=== PATIENT | female | born 1960 | race Caucasian/White ===

== ENCOUNTER 2025-07-22 10:23 | Outpatient (AMB) | payer OTHER, MEDICAID, MEDICARE, SELFPAY ==
--- NOTE | 2025-07-22 10:34 | A.OFFVIS_ITS ---
Intake Visit Reasons: 6mnth Allergies latex (LATEX) Allergy (Mild, Unverified 08/21/23 12:07) UNKNOWN HPI Comments Details: 64 y/o woman with migraine and epilepsy comprised of left temporal secondarily generalized seizures leading to aura, falling, shaking, tongue bite and incontinence. One MRI suggested temporal lesion but further imaging did not confirm it. She is presenting with medication management and refill request for seizure disorder and migraine. She denies recent seizure episodes and continues with her current regimen, which includes propranolol, sumatriptan, and Keppra. Although migraines persist, she manages acute episodes with sumatriptan. She needs new prescription refills for Keppra, given the transition to a new electronic prescription system. Pharmacological prescriptions are sent to her usual pharmacy, [facility] on [facility]. She maintains regular annual health checks and sees her primary care provider. No further questions were raised, and no additional concerns were expressed regarding her current treatment plan. [facility] Medical History (Updated 07/22/25 @ 10:41 by Sophia Welsh MD) Anxiety Depression MCI (mild cognitive impairment) Seizure disorder Migraine Review of Systems Const Details: - Neurological: Reports migraines; Denies recent seizures - General: Denies any additional health concerns - No other systems were discussed or mentioned in the conversation Physical Exam Neuro Other: Mental Status: Alert and oriented to person, place, and time. Normal attention. Normal spontaneous speech, fluency, and comprehension. No obvious issues with mood and memory. Affect is appropriate. Cranial Nerves: CN II: Visual duron full to confrontation, visual acuity intact. CN III, IV, : Pupils equal, round, reactive to light and accommodation. Extraocular movements are normal. CN V: Facial sensation is normal. CN VII: Facial movements symmetrical. CN VIII: Hearing intact to bedside conversation is normal. CN IX, X: Palate elevates symmetrically. CN XI: Shoulder shrug and head turn symmetrical. CN XII: Tongue midline without atrophy or fasciculations. Extrapyramidal: Full facial expressions and blinking. No rigidity. Movements are appropriate with no tremor or abnormality. Speech: Normal; no dysarthria or tremor. 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 Code(s): G40.909 - Epilepsy, unspecified, not intractable, without status epilepticus Category: Medical Qualifiers: Epilepsy type: unspecified Intractability: not intractable Status epilepticus: without status epilepticus Qualified Code(s): G40.909 - Epilepsy, unspecified, not intractable, without status epilepticus (2) Migraine: Code(s): G43.909 - Migraine, unspecified, not intractable, without status migrainosus Category: Medical Qualifiers: Migraine type: migraine (< 15 days per month) without aura Status migrainosus presence: without status migrainosus Intractability: not intractable Qualified Code(s): G43.009 - Migraine without aura, not intractable, without status migrainosus Plan Impression: 1. Epilepsy with secondarily generalized seizure disorder control with levetiracetam 2. Migraine with and without aura better with topiramate Recommendations 1. Levetiracetam 500 mg twice a day 2. Topiramate 50 mg twice a day 3. Sumatriptan 50 mg 1 a day as needed 4. She was encouraged to make regular appointments with primary care physician where routine blood test are done at least once a year. Medications: New topiramate 50 mg PO BID 180 tabs 1RF levetiracetam 500 mg PO BID 180 tabs 1RF Refilled sumatriptan succinate 50 mg orally one a day as needed PRN; do not exceed 4 doses per 24 hrs 10 tabs 5RF migraine headache 30 days Coding Level of Care Code Est Pt Level 4 (85415) Diagnoses Nonintractable epilepsy without status epilepticus, unspecified epilepsy type G40.909 Epilepsy type: unspecified Intractability: not intractable Status epilepticus: without status epilepticus Migraine without aura and without status migrainosus, not intractable G43.009 Migraine type: migraine (< 15 days per month) without aura Status migrainosus presence: without status migrainosus Intractability: not intractable
--- OUTSIDE RECORDS SUMMARY | 2025-07-22 12:49 | XMS_ITS | Clinical Summary ---
Author Organization [address] Address [address] [place] [phone] Phone Care Team Providers Care Verifier Operator Name Role Phone Serena Lundberg MD Primary Care Provider Allergies Active Allergy Reactions Criticality Noted Date Comments Latex Swelling 02/20/2016 Swelling and infection Mirtazapine 04/05/2016 Hallucinations, paranoia Medications venlafaxine XR (EFFEXOR-XR) 150 mg 24 hr capsule Take 1 capsule (150 mg total) by mouth 2 (two) times a day. as directed Active sertraline (ZOLOFT) 25 mg tablet Take 1 tablet (25 mg total) by mouth 1 (one) time each day. Active levETIRAcetam (KEPPRA) 500 mg tablet Take 1 tablet (500 mg total) by mouth 2 (two) times a day. for 90 days 4 Active propranoloL (INDERAL) 10 mg tablet Take 1 tablet (10 mg total) by mouth 3 (three) times a day. for 90 days 4 Active topiramate (TOPAMAX) 50 mg tablet Take 1 tablet (50 mg total) by mouth 2 (two) times a day. for 90 days Active SUMAtriptan (IMITREX) 50 mg tablet Take 1 tablet (50 mg total) by mouth 1 (one) time each day if needed. May repeat dose once after 2 hours, if needed. Active traZODone (DESYREL) 50 mg tablet Take 2 tablets (100 mg total) by mouth at bedtime as needed. Active sucralfate (CARAFATE) 1 gram tablet PLEASE SEE ATTACHED FOR DETAILED DIRECTIONS 4 Active loperamide (IMODIUM) 2 mg capsule Take 1 capsule (2 mg total) by mouth 2 (two) times a day if needed for diarrhea. Active multivitamin (MULTIPLE VITAMINS ORAL) Take by mouth. Active THIAMINE HCL, VITAMIN B1, ORAL Take by mouth. Activ e ergocalciferol (VITAMIN D-2) 1,250 mcg (50,000 unit) capsule Take 1 capsule (50,000 Units total) by mouth 1 (one) time per week. Active sertraline (ZOLOFT) 50 mg tablet Take 1 tablet (50 mg total) by mouth at bedtime. Active ofloxacin (FLOXIN) 0.3 % otic solution Administer 3 drops into the right ear 2 (two) times a day. CONTINUE MINERAL OIL. Active budesonide DR (ENTOCORT EC) 3 mg 24 hr capsuleIndicati ons:Cholangitis (CMS/HCC V28) TAKE 3 CAPSULES (9 MG TOTAL) BY MOUTH DAILY 270 capsule 5 Active omeprazole (PriLOSEC) [address] capsuleIndicati ons:Gastroesoph ageal reflux disease without esophagitis Take 1 capsule (40 mg total) by mouth 2 (two) times a day. 180 capsule 1 5 Active omeprazole (PriLOSEC) [address] capsuleIndicati ons:Gastroesoph ageal reflux disease without esophagitis TAKE 1 CAPSULE BY MOUTH TWICE A DAY 180 capsule 1 5 07/07/20 25 Discontin ued(Reord er) Active Problems Problem Noted Date Diagnosed Date Aortic stenosis 10/12/2024 Overview (10/12/2024): mild S/P gastric bypass 09/22/2024 Abnormal Pap smear of cervix 06/19/2018 Overview (09/22/2024): 03/24 ASCUS with HPV, bx MATILDE 2-3, LEEP scheduled 06/23/1807/25 ASCUS, HPV positive DJD (degenerative joint disease) of knee 017 Obstructive sleep apnea 10/18/2016 Overview (09/22/2024): Cx pulmo 02/04/2017/ N/S pulmo 03/08/2017 01/04/2017 to 02/02/2017. CPAP@ 4-16/Average 6.4/Max 7.1. 20% compliant with using the machine for >4 hours/day. Average use is 3.5 hours a night with AHI 1.9. 01/25/2017 to 02/23/2017. CPAP@ 4-16/Average 5.8/Max 6.2. 17% compliant with using the machine for >4 hours/day. Average use is 3.75 hours a night with AHI 1.2. 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 Migraines 02/20/2016 Seizure ([facility] V24, [facility] V28) 02/20/2016 Encounters Date Type Department Care Team Description 06/28/2025 Telephone [facility] - [facility] [address] [facility] [address] [place] [address] Salomon Murphy MD from Last 3 Months Immunizations Immunization Administration Dates Next Due Influenza Quadravalent, MDCK , 0.5ml, preservative free (Flucelvax) 6mo and older 07/30/2023,06/17/2021,06/19/2018 Influenza Quadravalent, MDCK , 0.5ml, with preservative (Flucelvax) 6mo and older 07/10/2019 Influenza trivalent, MDCK, 0 .5mL, preservative free (Flucelvax) 6mo and older 10/12/2024 Td Tetanus diptheria (Tdvax) 7yo and older 04/19 Tdap Tetanus diptheria acell ular pertussis (Boostrix; Adacel) 7yo and older 12/26/2016 Zoster recombinant (Shingrix ) 19yo and older 08/26/2023,06/17/2021 Surgical History Surgery Date Site/Laterality Comments TONSILLECTOMY OVARIAN CYST REMOVAL 2010 Left COLONOSCOPY 12/30/2014 UPPER GASTROINTESTINAL ENDOSCOPY 12/30/2014 BUNIONECTOMY 06/2012 GASTRIC BYPASS SCREENING MAMMOGRAM 08/15/2023 Bilateral Medical History Medical History Date Comments Ulcerative colitis ([facility] V24, [facility] V28) 02/20/2016 Celiac disease 02/20/2016 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 Small pericardial cyst DJD (degenerative joint dise ase) of knee 12/26/2016 Abnormal Pap smear of cervix 06/19/2018 : ASCUS with HPV, bx MATILDE 2-3, LEEP scheduled 06/23/18 Aortic stenosis 10/12/2024 mild S/P gastric bypass 09/22/2024 Family History Medical History Relation Name Comments Diabetes Father atrial fibrilla tion; sudden at 78 Breast cancer Father's Sister Glaucoma Mother epilepsy; [place], s udden Relation Name Status Comments Father Father's Sister Alive Mother Social History Tobacco Use Types Packs/Day Years Used Date Smoking Tobacco: Never Smokeless Tobacco: Never Tobacco Cessation:Counseling Given: Not Answered Alcohol Use Standard Drinks/Week Comments Not Currently 0 (1 standard drink = 0.6 oz pur e alcohol) Comments No Sex and Gender Information Value Date Recorded Sex Assigned at Not on file Legal Sex Female 1:08 AM EST Gender Identity Not on file Sexual Orientation Not on file Obstetrics History Para Term AB IAB SAB Ectopic Multiple Livin g Live Births 2 Last Filed Vital Signs Vital Sign Reading Time Taken Comments Blood Pressure 128/72 10/12/2024 2:14 PM EST Pulse 76 10/12/2024 2:14 PM EST Temperature 36.7 C (98.1 F) 10/12/2024 2:14 PM EST Respiratory Rate 16 10/12/2024 2:14 PM EST Oxygen Saturation 97% 10/12/2024 2:14 PM EST Inhaled Oxygen Concentration - - Weight 83 kg (183 lb) 10/14/2024 8:25 AM EST Height 170.2 cm (5' 7 ) 10/14/2024 8:25 AM EST Body Mass Index 28.66 10/14/2024 8:25 AM EST Plan of Treatment Upcoming Encounters Date Type Department Care Team (Late st Contact Info) Description 12/31/2025 8:00 AM EDT Office Visit Gastroenterology - [place] [address] [facility] [address] [facility] [address] [place] [id number] Heydi Villanueva, MARCUS [address] [facility] [address] [place] [address] Health Maintenance Due Date Last Done Comments Pneumococcal Vaccine: 50+ Years (1 of 1 - PCV) 2012 HIV Screening 09/09/2022 Medicare Annual Wellness Visit 09/09/2022 Social Influencers of Health Screening 09/09/2022 Depression Screening 10/07/2024 COVID-19 Vaccine ( season) 2025 08/26/2023, 10/17/2021, 02/16/2021, Additional history exists Influenza Vaccine (#1) 2025 , 07/30/2023, 06/17/2021, Additional history exists Breast Cancer Screening 10/14/2026 10/14/19, 08/15/2023, 08/15/2023, Additional history exists DTaP,Tdap,and Td Vaccines (3 - Td or Tdap) 12/26/2026 12/26/2016, 04/19/2016 Colorectal Cancer Screening: Colonoscopy 05/24/2027 05/24/2017, 05/24/2017 Cholesterol Screening (Lipid Panel) 07/30/2028 07/30/2023, 07/30/2023 Cervical Cancer Screening: HPV 11/01/2028 11/01/2023 RSV Immunization Adult Patients (1 - 1-dose 75+ series) 2037 Hepatitis C Screening Completed 12/26/2016 Zoster Vaccines Completed 08/26/2023, 06/17/2021 HIB Vaccines Aged Out No longer eligi ble based on patient's age to complete this topic HPV Vaccines Aged Out No longer eligi ble based on patient's age to complete this topic Hepatitis A Vaccines Aged Out No long er eligible based on patient's age to complete this topic Hepatitis B Vaccines Aged Out No long er eligible based on patient's age to complete this topic IPV Vaccines Aged Out No longer eligi ble based on patient's age to complete this topic MMR Vaccines Aged Out No longer eligi ble based on patient's age to complete this topic Meningococcal ACWY Vaccine Aged Out N o longer eligible based on patient's age to complete this topic Meningococcal B Vaccine Aged Out No l onger eligible based on patient's age to complete this topic RSV Immunization Patients Under 20 months Aged Out No longer eligible based on patient's age to complete this topic Varicella Vaccines Aged Out No longer eligible based on patient's age to complete this topic Procedures Procedure Name Priority Date/Time Associated Diagnosis Comments MG MAMMO DIGITAL SCREENING W JEFFREY BILAT Routine 10/14/2024 8:45 AM EST Encounter for screening mammogram for breast cancer HPV Routine 11/01/2023 LIPID PANEL Routine 07/30/2023 COLONOSCOPY Routine 05/24/2017 HEPATITIS C SCREENING Routine 12/26/2016 from Last 3 Months or Most Recently Relevant to Health Maintenance Results * MG Mammo Digital Screening w Jeffrey bilat (10/14/2024 8:45 AM EST) Anatomical Region Laterality Modality Breast Bilateral Mammography 10/15/2024 8:35 AM EST Impressions 10/15/2024 8:40 AM EST No mammographic evidence of malignancy. No suspicious interval change. A negative mammogram in the presence of a clinically suspicious palpable abnormality does not preclude the possibility of malignancy or alter the indications for biopsy. ASSESSMENT: BI-RADS 1: NEGATIVE RECOMMENDATION(S): 1: Routine screening mammogram BILATERAL in 1 year. -------- FINAL REPORT -------- Dictated By: Bartolo Darling Dictated Date: 10/15/2024 08:35 ET Assigned Physician: Bartolo Darling Reviewed and Electronically Signed By: Bartolo Darling Signed Date: 10/15/2024 08:40 ET Workstation ID: [id number] Transcribed By: Self Edit Transcribed Date: 10/15/2024 08:35 ET Narrative 10/15/2024 8:40 AM EST EXAM: SCREENING MAMMOGRAPHY, BILATERAL HISTORY: SCREENING. Paternal aunt with history of breast cancer. COMPARISON: 07/30/2023 TECHNIQUE: Synthesized CC and MLO projections of each breast. Tomosynthesis of each breast in the CC and MLO projections. ADDITIONAL IMAGING: None Computer-aided detection was employed with the [employer] AI 3-D. TISSUE DENSITY: There are scattered areas of fibroglandular density. (BI-RADS category B) FINDINGS: RIGHT BREAST: No suspicious mass. No suspicious calcification. No distortion. No suspicious change in the region of a ribbon-shaped biopsy site marker LEFT BREAST: No suspicious mass. No suspicious calcification. No distortion. No additional suspicious left breast findings Procedure Note Bartolo Darling MD - 10/15/2024 EXAM: SCREENING MAMMOGRAPHY, BILATERAL HISTORY: SCREENING. Paternal aunt with history of breast cancer. COMPARISON: 07/30/2023 TECHNIQUE: Synthesized CC and MLO projections of each breast.Tomosynthesis of each breast in the CC and MLO projections. ADDITIONAL IMAGING: None Computer-aided detection was employed with the [employer] AI 3-D. TISSUE DENSITY: There are scattered areas of fibroglandular density.(BI-RADS category B) FINDINGS: RIGHT BREAST: No suspicious mass. No suspicious calcification. No distortion. No suspicious change in the region of a ribbon-shaped biopsy site marker LEFT BREAST: No suspicious mass. No suspicious calcification. No distortion. Noadditional suspicious left breast findings IMPRESSION: No mammographic evidence of malignancy. No suspicious interval change. A negative mammogram in the presence of a clinically suspicious palpableabnormality does not preclude the possibility of malignancy or alter theindications for biopsy. ASSESSMENT: BI-RADS 1: NEGATIVE RECOMMENDATION(S): 1: Routine screening mammogram BILATERAL in 1 year. -------- FINAL REPORT -------- Dictated By: Bartolo Darling Dictated Date: 10/15/2024 08:35 ET Assigned Physician: Bartolo Darling Reviewed and Electronically Signed By: Bartolo Darling Signed Date: 10/15/2024 08:40 ET Workstation ID: [id number] Transcribed By: Self Edit Transcribed Date: 10/15/2024 08:35 ET Self Referral Sppl IMG BI PROCEDURES Final Resul t * Cervical Cancer Screening: HPV (11/01/2023) [facility] Cervical Cancer Screening: HPV negative, abstracted [facility] Provider HEALTH MAINTENANCE Final Result * (ABNORMAL) Lipid panel (07/30/2023) [facility] LDL/HDL Ratio 2 0 - 4 Triglycerides 74 0 - 150 mg/dL Cholesterol 202(A) 0 - 200 mg/dL HDL 91 >=40 mg/dL LDL Cholesterol 97 0 - 100 mg/dL Blood Venous blood specimen / Unknown Result [facility] Provider LAB BLOOD ORDERABLES Eleonora l Result * Colonoscopy (05/24/2017) [facility] Colonoscopy no interpretation , abstracted Anatomical Region Laterality Modality Other [facility] Provider HEALTH MAINTENANCE Final Result * Hepatitis C Screening (12/26/2016) [facility] Hepatitis C Screening abstracted [facility] Provider HEALTH MAINTENANCE Final Result from Last 3 Months or Most Recently Relevant to Health Maintenance Insurance [employer] MEDICARE Care Teams Verifier Operator Relationship Specialty Start Date End Date Serena Lundberg MD [address] [place] [address] PCP - General Internal Medicine 02/15/16
--- OUTSIDE RECORDS SUMMARY | 2025-07-22 12:49 | XMS_ITS | Patient Health Record ---
Author Organization [facility] Address [address] [place] [address] Support Name Relationship Address Phone DONNIEFRANKRUBÉN GUNN Guarantor Unknown [phone] Reason For Referral No Information Medications Medication SIG (Take, Route, Fr equency, Duration) Notes Start Date End Date Status Venlafaxine HCl 75MG ORAL daily; Duration: -3 Raúl-MJ 01/07 Active venlafaxine 150MG ORAL daily; Duration: -3 Raúl-MJ 012 Active Topiramate 100MG 1 ORAL twice daily; Duration: -3 Raúl-MJ 02/04/2012 Active Omeprazole 40MG 1 ORAL daily; Duration: -3 Raúl-MJ 012 Active Problems Problem Type SNOMED Code ICD Code Onset Dates Problem Status W/U Status Risk Notes Problem Esophageal reflux (054128860) Esophageal reflux (530.81) Active confirmed Major Problem Castro's esophagus (340521693) 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 Major Problem Cyst of ovary (09184759) Other and unspecified ovarian cyst (620.2) Active confirmed Diag Problem Abnormal vaginal bleeding (284490508) Other disorder of menstruation and other abnormal bleeding from female genital tract (626.8) Active confirmed Diag Problem Convulsion (84110925) Other convulsions (780.39) Active confirmed Major Problem Gynecological examination normal (287621601499463) Routine gynecological examination (V72.31) Active confirmed Major Plan Of Treatment No Information Insurance Providers Payer Name Payer Address Payer Phone Subscriber Number Group Number Insured Name Patient Relationship to Insured Coverage Start Date Coverage End Date [facility] [address] [place] [address] RUBÉN CHAVIRA Self - patient is the insured
== END 2025-07-22 10:43 | disposition home or self-care (01) ==
LOC: HO.HSM 10:23
PROVIDERS: PCP Internal Medicine; Referring Provider Internal Medicine; Visit Provider Psychiatry & Neurology Neurology
DX: G40.909 Epilepsy, unspecified, not intractable, without status epilepticus (principal); G43.009 Migraine without aura, not intractable, without status migrainosus
CPT/HCPCS: 99214